=== PATIENT | female | born 1970 | race African-American/Black ===

== ENCOUNTER 2016-11-17 19:24 | Emergency (ER) | payer MEDICAID, OTHER ==
[~2016-11-17] VITALS: Ht 167.6 cm; Wt 79.0 kg
[2016-11-17] MEDS ORDERED: AZITHROMYCIN 500 MG TABLET PO ONE (20:30)
[2016-11-17] MEDS ORDERED: CEFTRIAXONE SODIUM 250 MG/VIAL IM ONE (20:30)
[2016-11-17] MEDS ORDERED: LIDOCAINE HCL 1% 20ML VIAL (Pyxis) INJ MC ONE (20:30)
[2016-11-17 21:13] LABS: CLARITY URINE CLEAR (CLEAR); COLOR URINE YELLOW (YELLOW); GLUCOSE URINE NEGATIVE (NEGATIVE); KETONES URINE NEGATIVE (NEGATIVE); LEUKOCYTE ESTERASE URINE TRACE (NEGATIVE); NITRITE URINE NEGATIVE (NEGATIVE); OCCULT BLOOD URINE NEGATIVE (NEGATIVE); PROTEIN URINE NEGATIVE (NEGATIVE); SPECIFIC GRAVITY URINE 1.015 (1.005-1.030)
[2016-11-17 21:15] VITALS: BP 131/75
[2016-11-17 21:41] LABS: RBC URINE NONE SEEN /hpf (0-2); SQUAMOUS EPITHELIAL CELL URINE FEW /lpf (RARE/1+); WBC URINE 0-2 /hpf (0-2)
[2016-11-17 21:42] LABS: BACTERIA URINE 2+
[2016-11-17 21:56] LABS: HCG SCREEN NEGATIVE
== END 2016-11-17 22:05 | disposition home or self-care (01) ==
LOC: ER 19:28
DX: B37.3 Candidiasis of vulva and vagina (principal); N39.0 Urinary tract infection, site not specified; N64.4 Mastodynia; D64.9 Anemia, unspecified; Z98.890 Other specified postprocedural states
CPT/HCPCS: 76642; 81001; 84703; 96372; 99285; J0696; J3490

== ENCOUNTER 2017-08-02 00:28 | Emergency (ER) | payer OTHER ==
[~2017-08-02] VITALS: Ht 167.6 cm; Wt 72.4 kg
[2017-08-02 01:30] LABS: BASOPHILS % 0.4 % (0.0-2.0); HEMOGLOBIN. 8.8 g/dL (12.0-16.0); LYMPHOCYTES % 36.2 % (20.0-50.0); MEAN CORPUSCULAR HEMOGLOBIN 21.1 pg (28.0-32.0); MEAN CORPUSCULAR VOLUME 67.2 fL (81.0-99.0); MEAN PLATELET VOLUME 9.2 fl (7.4-10.4); NEUTROPHILS % 54.4 % (40.0-76.0); PLATELET 197 x1000/uL (130-400); RED BLOOD CELL COUNT 4.16 mill/uL (4.2-5.4); RED CELL DISTRIBUTION WIDTH 18.4 % (11.6-14.6)
[2017-08-02 01:35] LABS: PLATELET ESTIMATE NORMAL
[2017-08-02 01:37] LABS: CHLORIDE 106 mEq/L (98-107)
[2017-08-02 01:38] LABS: HCG SCREEN NEGATIVE
[2017-08-02 01:41] LABS: CLARITY URINE CLEAR (CLEAR); COLOR URINE YELLOW (YELLOW); GLUCOSE URINE NEGATIVE (NEGATIVE); KETONES URINE NEGATIVE (NEGATIVE); LEUKOCYTE ESTERASE URINE 3+ (NEGATIVE); NITRITE URINE NEGATIVE (NEGATIVE); OCCULT BLOOD URINE NEGATIVE (NEGATIVE); PROTEIN URINE NEGATIVE (NEGATIVE); SPECIFIC GRAVITY URINE 1.017 (1.005-1.030); UROBILINOGEN URINE 0.2 E.U./dL (0.2-1.0)
[2017-08-02 01:51] LABS: CARBON DIOXIDE 25 mEq/L (21-32)
[2017-08-02] MEDS ORDERED: CEPHALEXIN 500MG CAPSULE PO ONE (02:00)
[2017-08-02 02:54] VITALS: BP 117/64
== END 2017-08-02 03:42 | disposition home or self-care (01) ==
LOC: ER 00:28
DX: D64.9 Anemia, unspecified (principal); N39.0 Urinary tract infection, site not specified; R53.83 Other fatigue; R07.9 Chest pain, unspecified; F32.9 Major depressive disorder, single episode, unspecified; Z98.890 Other specified postprocedural states; Z59.0 Homelessness
CPT/HCPCS: 36415; 71010; 80053; 81001; 84703; 85025; 87077; 87086; 87186; 93005; 99285

== ENCOUNTER 2017-08-15 12:30 | Emergency (ER) | payer OTHER ==
[~2017-08-15] VITALS: Ht 162.6 cm; Wt 75.0 kg
[2017-08-15 12:38] VITALS: BP 102/68
== END 2017-08-15 16:18 | disposition left against medical advice (07) ==
LOC: ER 12:48
DX: Z53.21 Procedure and treatment not carried out due to patient leaving prior to being seen by health care provider (principal)

== ENCOUNTER 2017-08-15 22:14 | Emergency (ER) | payer OTHER ==
[~2017-08-15] VITALS: Ht 170.2 cm; Wt 72.0 kg
[2017-08-16] MEDS ORDERED: KETOROLAC 30MG/ML VIAL IV STA (03:20)
[2017-08-16] MEDS ORDERED: MAGNESIUM/ALUMINUM HYDROXIDE/SIMETHICONE 30ML UDC PO STA (03:20)
[2017-08-16] MEDS ORDERED: ONDANSETRON 4MG ODT PO STA (03:20)
[2017-08-16 03:43] LABS: BASOPHILS % 0.6 % (0.0-2.0); EOSINOPHILS % 0.3 % (0.0-5.0); HEMOGLOBIN. 8.8 g/dL (12.0-16.0); LYMPHOCYTES % 23.2 % (20.0-50.0); MEAN CORPUSCULAR HEMOGLOBIN 21.7 pg (28.0-32.0); MEAN CORPUSCULAR VOLUME 69.2 fL (81.0-99.0); MEAN PLATELET VOLUME 8.9 fl (7.4-10.4); MONOCYTES % 6.8 % (2.0-8.0); NEUTROPHILS % 69.1 % (40.0-76.0); PLATELET 218 x1000/uL (130-400); RED BLOOD CELL COUNT 4.05 mill/uL (4.2-5.4); RED CELL DISTRIBUTION WIDTH 20.1 % (11.6-14.6)
[2017-08-16 03:52] LABS: PLATELET ESTIMATE NORMAL
[2017-08-16 03:57] LABS: CHLORIDE 104 mEq/L (98-107); PROTHROMBIN TIME 10.2 sec (9.4-11.6)
[2017-08-16 04:06] LABS: CARBON DIOXIDE 26 mEq/L (21-32)
[2017-08-16 04:48] LABS: CLARITY URINE TURBID (CLEAR); COLOR URINE YELLOW (YELLOW); KETONES URINE 1+ (NEGATIVE); LEUKOCYTE ESTERASE URINE NEGATIVE (NEGATIVE); NITRITE URINE NEGATIVE (NEGATIVE); OCCULT BLOOD URINE NEGATIVE (NEGATIVE); PROTEIN URINE TRACE (NEGATIVE); SPECIFIC GRAVITY URINE 1.028 (1.005-1.030); UROBILINOGEN URINE 0.2 E.U./dL (0.2-1.0)
[2017-08-16 06:44] VITALS: BP 94/62
== END 2017-08-16 10:31 | disposition home or self-care (01) ==
LOC: ER 22:14
DX: D64.9 Anemia, unspecified (principal); R10.30 Lower abdominal pain, unspecified; R50.9 Fever, unspecified; R11.0 Nausea; R19.7 Diarrhea, unspecified; H57.8 Other specified disorders of eye and adnexa; R06.02 Shortness of breath; M79.1 Myalgia; Z88.8 Allergy status to other drugs, medicaments and biological substances
CPT/HCPCS: 36415; 80053; 81001; 81025; 83690; 85025; 85610; 87804; 96374; 99284; J1885; Q0162; Z7610

== ENCOUNTER 2017-08-16 11:43 | Emergency (ER) | payer OTHER ==
[~2017-08-16] VITALS: Ht 167.6 cm; Wt 71.0 kg
[2017-08-16 11:53] VITALS: BP 131/78
== END 2017-08-16 15:29 | disposition left against medical advice (07) ==
LOC: ER 12:16
DX: R51 Headache (principal); Z53.21 Procedure and treatment not carried out due to patient leaving prior to being seen by health care provider

== ENCOUNTER 2017-08-16 19:46 | Emergency (ER) | payer MEDICAID, OTHER ==
[~2017-08-16] VITALS: Ht 170.2 cm; Wt 60.0 kg
[2017-08-17 01:21] LABS: CLARITY URINE CLOUDY (CLEAR); COLOR URINE YELLOW (YELLOW); KETONES URINE TRACE (NEGATIVE); LEUKOCYTE ESTERASE URINE 3+ (NEGATIVE); NITRITE URINE POSITIVE (NEGATIVE); OCCULT BLOOD URINE TRACE (NEGATIVE); PROTEIN URINE NEGATIVE (NEGATIVE); SPECIFIC GRAVITY URINE 1.021 (1.005-1.030); UROBILINOGEN URINE 0.2 E.U./dL (0.2-1.0)
[2017-08-17] MEDS ORDERED: LIDOCAINE HCL 1% 20ML VIAL (Pyxis) INJ INFIL ONE (03:45)
[2017-08-17] MEDS ORDERED: CEFTRIAXONE SODIUM 1 G/VIAL IM ONE (03:45)
[2017-08-17 04:16] VITALS: BP 115/66
[2017-08-17] MEDS ORDERED: ACETAMINOPHEN 500MG TABLET PO ONE (05:15)
== END 2017-08-17 05:23 | disposition home or self-care (01) ==
LOC: ER 19:46
DX: R51 Headache (principal); T45.2X5A Adverse effect of vitamins, initial encounter; N39.0 Urinary tract infection, site not specified; D50.9 Iron deficiency anemia, unspecified; F17.200 Nicotine dependence, unspecified, uncomplicated; Z88.8 Allergy status to other drugs, medicaments and biological substances; Z91.14 Patient's other noncompliance with medication regimen; Y92.89 Other specified places as the place of occurrence of the external cause
CPT/HCPCS: 81001; 81025; 93005; 96372; 99285; J0696; J3490; Z7610

== ENCOUNTER 2017-08-17 07:00 | Emergency (ER) | payer MEDICAID, OTHER ==
[~2017-08-17] VITALS: Ht 167.6 cm; Wt 71.0 kg
[2017-08-17 15:15] LABS: BASOPHILS % 0.5 % (0.0-2.0); EOSINOPHILS % 0.6 % (0.0-5.0); HEMATOCRIT. 29.5 % (36.0-48.0); HEMOGLOBIN. 9.3 g/dL (12.0-16.0); LYMPHOCYTES % 12.1 % (20.0-50.0); MEAN CORPUSCULAR HEMOGLOBIN 22.1 pg (28.0-32.0); MEAN CORPUSCULAR VOLUME 70.1 fL (81.0-99.0); MONOCYTES % 6.7 % (2.0-8.0); NEUTROPHILS % 80.1 % (40.0-76.0); PLATELET 228 x1000/uL (130-400); RED BLOOD CELL COUNT 4.21 mill/uL (4.2-5.4); RED CELL DISTRIBUTION WIDTH 19.9 % (11.6-14.6)
[2017-08-17 15:25] LABS: CHLORIDE 105 mEq/L (98-107)
[2017-08-17 15:25] LABS: CLARITY URINE TURBID (CLEAR); COLOR URINE YELLOW (YELLOW); KETONES URINE TRACE (NEGATIVE); LEUKOCYTE ESTERASE URINE 3+ (NEGATIVE); NITRITE URINE NEGATIVE (NEGATIVE); OCCULT BLOOD URINE 1+ (NEGATIVE); PH URINE 5.5 (4.5-8.0); PROTEIN URINE TRACE (NEGATIVE); SPECIFIC GRAVITY URINE 1.019 (1.005-1.030); UROBILINOGEN URINE 0.2 E.U./dL (0.2-1.0)
[2017-08-17 15:33] LABS: CARBON DIOXIDE 30 mEq/L (21-32)
[2017-08-17 18:56] VITALS: BP 106/62
== END 2017-08-17 18:57 | disposition home or self-care (01) ==
LOC: ER 07:40
DX: N39.0 Urinary tract infection, site not specified (principal); F12.10 Cannabis abuse, uncomplicated; Z88.8 Allergy status to other drugs, medicaments and biological substances
CPT/HCPCS: 36415; 71010; 80053; 81001; 81025; 85025; 93005; 99285; Z7610

== ENCOUNTER 2017-08-30 07:52 | Emergency (ER) | payer MEDICAID, OTHER ==
[~2017-08-30] VITALS: Ht 167.6 cm; Wt 71.0 kg
[2017-08-30 07:56] VITALS: BP 128/88
== END 2017-08-30 12:51 | disposition left against medical advice (07) ==
LOC: ER 08:24
DX: H57.12 Ocular pain, left eye (principal); Z53.21 Procedure and treatment not carried out due to patient leaving prior to being seen by health care provider

== ENCOUNTER 2017-09-14 21:50 | Emergency (ER) | payer OTHER ==
[~2017-09-14] VITALS: Ht 167.6 cm; Wt 68.0 kg
[2017-09-15] MEDS ORDERED: SODIUM CHLORIDE 0.9% 1,000 ML IV ONE (06:09)
[2017-09-15] MEDS ORDERED: ONDANSETRON HCL 4MG/2ML VIAL IV STA (06:09)
[2017-09-15] MEDS ORDERED: MORPHINE SULFATE 4 MG/ML CPJ (NOT FOR IM USE) IV STA (06:09)
[2017-09-15 06:38] LABS: BASOPHILS % 0.3 % (0.0-2.0); EOSINOPHILS % 0.6 % (0.0-5.0); HEMATOCRIT. 26.6 % (36.0-48.0); HEMOGLOBIN. 8.3 g/dL (12.0-16.0); LYMPHOCYTES % 22.5 % (20.0-50.0); MEAN CORPUSCULAR HEMOGLOBIN 22.2 pg (28.0-32.0); MEAN CORPUSCULAR VOLUME 70.7 fL (81.0-99.0); MONOCYTES % 8.5 % (2.0-8.0); NEUTROPHILS % 68.1 % (40.0-76.0); PLATELET 192 x1000/uL (130-400); RED BLOOD CELL COUNT 3.76 mill/uL (4.2-5.4); RED CELL DISTRIBUTION WIDTH 19.6 % (11.6-14.6)
[2017-09-15 06:45] LABS: CHLORIDE 105 mEq/L (98-107)
[2017-09-15] MEDS ORDERED: ACETAMINOPHEN 325MG TABLET PO ONE (06:45)
[2017-09-15 06:47] LABS: INR 1.1; PARTIAL THROMBOPLASTIN TIME 24.7 sec (23.4-31.0); PROTHROMBIN TIME 10.9 sec (9.4-11.6)
[2017-09-15 06:53] LABS: CARBON DIOXIDE 27 mEq/L (21-32)
[2017-09-15 07:02] LABS: CLARITY URINE CLEAR (CLEAR); COLOR URINE YELLOW (YELLOW); KETONES URINE NEGATIVE (NEGATIVE); LEUKOCYTE ESTERASE URINE 2+ (NEGATIVE); NITRITE URINE NEGATIVE (NEGATIVE); OCCULT BLOOD URINE NEGATIVE (NEGATIVE); PROTEIN URINE NEGATIVE (NEGATIVE); SPECIFIC GRAVITY URINE 1.015 (1.005-1.030)
[2017-09-15] MEDS ORDERED: CEFTRIAXONE 1 G PREMIX 50 ML IV ONE (07:45)
[2017-09-15] MEDS ORDERED: LEVOFLOXACIN 500MG TABLET PO ONE (07:45)
[2017-09-15 09:15] VITALS: BP 114/68
== END 2017-09-15 09:17 | disposition home or self-care (01) ==
LOC: ER 22:05
DX: J18.9 Pneumonia, unspecified organism (principal); N39.0 Urinary tract infection, site not specified; D64.9 Anemia, unspecified; F41.9 Anxiety disorder, unspecified; F32.9 Major depressive disorder, single episode, unspecified; Z98.890 Other specified postprocedural states; Z88.8 Allergy status to other drugs, medicaments and biological substances
CPT/HCPCS: 36415; 71045; 80053; 81001; 83690; 85025; 85610; 85730; 87086; 96361; 96365; 99285; J0696; J7030; Z7610

== ENCOUNTER 2019-02-16 14:52 | Emergency (ER) | payer MEDICAID, OTHER ==
[~2019-02-16] VITALS: Ht 167.6 cm; Wt 80.0 kg
[2019-02-16 16:29] VITALS: BP 155/86
== END 2019-02-16 16:37 | disposition home or self-care (01) ==
LOC: ER 15:02
DX: Z20.7 Contact with and (suspected) exposure to pediculosis, acariasis and other infestations (principal)
CPT/HCPCS: 99282

== ENCOUNTER 2019-06-09 17:31 | Emergency (ER) | payer MEDICAID ==
[~2019-06-09] VITALS: Ht 167.6 cm; Wt 79.0 kg
[2019-06-09 21:24] LABS: BASOPHILS % 0.3 % (0.0-2.0); EOSINOPHILS % 1.7 % (0.0-5.0); HEMATOCRIT. 32.6 % (36.0-48.0); HEMOGLOBIN. 10.6 g/dL (12.0-16.0); LYMPHOCYTES % 32.8 % (20.0-50.0); MEAN CORPUSCULAR HEMOGLOBIN 26.8 pg (28.0-32.0); MEAN CORPUSCULAR VOLUME 82.3 fL (81.0-99.0); MEAN PLATELET VOLUME 9.7 fl (7.4-10.4); MONOCYTES % 8.1 % (2.0-8.0); NEUTROPHILS % 57.1 % (40.0-76.0); PLATELET 244 x1000/uL (130-400); RED BLOOD CELL COUNT 3.96 mill/uL (4.2-5.4); RED CELL DISTRIBUTION WIDTH 17.4 % (11.6-14.6)
[2019-06-09 21:31] LABS: CHLORIDE 105 mEq/L (98-107)
[2019-06-09 21:38] LABS: HCG SCREEN NEGATIVE
[2019-06-09 21:41] LABS: B-HCG QUANTITATIVE < 1 mIU/mL (<3)
[2019-06-09 21:51] LABS: CLARITY URINE CLEAR (CLEAR); COLOR URINE YELLOW (YELLOW); KETONES URINE NEGATIVE (NEGATIVE); LEUKOCYTE ESTERASE URINE TRACE (NEGATIVE); NITRITE URINE NEGATIVE (NEGATIVE); OCCULT BLOOD URINE 3+ (NEGATIVE); PH URINE 6.5 (4.5-8.0); PROTEIN URINE NEGATIVE (NEGATIVE); SPECIFIC GRAVITY URINE 1.015 (1.005-1.030)
[2019-06-09] MEDS ORDERED: ONDANSETRON HCL 4MG/2ML INJ IV NR (23:00)
[2019-06-09] MEDS ORDERED: KETOROLAC 30MG/ML VIAL IV NR (23:00)
[2019-06-10 00:09] VITALS: BP 127/69
== END 2019-06-10 00:28 | disposition home or self-care (01) ==
LOC: ER 17:31
DX: D25.9 Leiomyoma of uterus, unspecified (principal); D64.9 Anemia, unspecified
CPT/HCPCS: 36415; 76830; 76856; 80053; 81003; 81025; 84702; 84703; 85025; 85610; 86850; 86870; 86900; 86901; 99284; Z7610; J2405

== ENCOUNTER 2024-02-13 18:22 | Emergency (ER) | payer MEDICAID ==
[~2024-02-13] VITALS: Ht 167.6 cm; Wt 80.0 kg
[2024-02-13 19:03] VITALS: TEMP 97.9; O2SAT 100
[2024-02-13] MEDS ORDERED: IBUP-2029 MT (20:24)
[2024-02-13] MEDS: IBUPROFEN 600MG TABLET PO ONE (20:58)
[2024-02-13 21:03] VITALS: BP 184/74; PULSE 78; RESP 16
== END 2024-02-13 21:07 | disposition home or self-care (01) ==
LOC: ER 18:22
DX: S62.625A Displaced fracture of middle phalanx of left ring finger, initial encounter for closed fracture (principal); D64.9 Anemia, unspecified; F32.A Depression, unspecified; Z98.890 Other specified postprocedural states; Z88.8 Allergy status to other drugs, medicaments and biological substances; X58.XXXA Exposure to other specified factors, initial encounter; Y93.89 Activity, other specified; Y92.89 Other specified places as the place of occurrence of the external cause; Y99.8 Other external cause status
CPT/HCPCS: 29130; 73130; 99283

== ENCOUNTER 2024-10-15 16:05 | Emergency (ER) | payer MEDICAID, OTHER ==
[~2024-10-15] VITALS: Ht 167.6 cm; Wt 75.0 kg
[~2024-10-15 16:05] MED LIST: IBUP-2029 MT
[2024-10-15 16:43] VITALS: BP 141/82; PULSE 94; RESP 18; TEMP 36.8; O2SAT 99
== END 2024-10-15 17:03 | disposition left against medical advice (07) ==
LOC: ER 16:05
DX: R06.02 Shortness of breath (principal); Z53.21 Procedure and treatment not carried out due to patient leaving prior to being seen by health care provider